=== PATIENT | female | born 1960 | race Caucasian/White ===

== ENCOUNTER 2018-12-23 08:53 | Day surgery (SDC) | payer OTHER ==
[2018-12-23] MEDS ORDERED: PROPOFOL 60 ML (11:52)
== END 2018-12-23 15:07 | disposition home or self-care (01) ==
LOC: GIL 08:53
DX: K64.8 Other hemorrhoids (principal); K29.30 Chronic superficial gastritis without bleeding; K51.90 Ulcerative colitis, unspecified, without complications; J45.909 Unspecified asthma, uncomplicated; E03.9 Hypothyroidism, unspecified
CPT/HCPCS: 43239; 88305; 88312